=== PATIENT | male | born 1995 | race Asian ===

== ENCOUNTER 2017-04-27 11:41 | Emergency (ER) | payer OTHER ==
[~2017-04-27] VITALS: Ht 177.8 cm; Wt 80.0 kg
[2017-04-27 11:45] VITALS: TEMP 36.9; Ht 177.8 cm; Wt 80.0 kg
[2017-04-27] MEDS ORDERED: IBUPROFEN 600 MG TAB PO STA (12:42)
--- NOTE | 2017-04-27 13:29 | DIAGNOSTIC IMAGING REPORT ---
C-SPINE ROUTINE 4 OR 5 VIEWS CLINICAL HISTORY: 21 years-old Male presenting with L sided neck pain. TECHNIQUE: Frontal, bilateral oblique, lateral, and open-mouth odontoid views of the cervical spine were obtained. COMPARISON: None. FINDINGS: The C7 vertebral body is almost completely visible. Slight reversal of normal cervical lordosis. Vertebral body heights and alignment otherwise preserved. No osseous neural foraminal narrowing. The lateral masses of C1 articulate normally with C2. No widening of the predental interval. No radiographic evidence of acute fracture or subluxation. No prevertebral soft tissue swelling. IMPRESSION: 1. Slight reversal of normal cervical lordosis without associated degenerative change. No osseous neural foraminal narrowing. Electronically signed by: Juan Luis Manley M.D. 04/27/2017 1:28 PM Dictated Date/Time: 04/27/2017 1:25 PM
[2017-04-27] MEDS ORDERED: CYCL10TA6 PO (13:41)
[2017-04-27 13:45] VITALS: BP 118/64; PULSE 63; O2SAT 97
--- NOTE | 2017-04-27 20:44 | EMERGENCY ROOM VISIT NOTE ---
ED Visit Note First contact with patient: 12:12 Chief Complaint: Neck pain. History of Present Illness: Mr. Nye is a 21-year-old [place] male who ambulates into the ED complaining of left-sided neck pain over the middle portion of the trapezius. Patient reports he has been feeling well over the last few days. Today he woke from sleep approximately 2 hours ago and noted pain over the left trapezius muscle. Since that time his pain has been constant. He describes his pain as a deep achy and cramping sensation. He rates his discomfort 4/10. His pain is nonradiating. His pain worsens with extension and left lateral bending of the neck. Additionally he reports it's tender with palpation. He has not identified any alleviating factors related to the pain. He has not taken any medications for pain prior to arrival at the hospital. He denies any associated symptoms including fevers, chills, sweats, skin eruptions, skin color changes, headache, dizziness, lightheadedness, visual changes, hearing changes, sore throat, voice changes, neck stiffness, chest pain, shortness of breath, abdominal pain, nausea, vomiting, recent direct or repetitive trauma, upper extremity weakness/numbness/tingling. Review of Systems: As noted above in history of present illness. All body systems were reviewed and found to be negative as noted above. Past Medical History: Patient denies. Current Medications: Patient denies. Allergies to Medications: Patient denies. 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 Physical Examination: Vital Signs: Date Time Temp Pulse Resp B/P (MAP) Pulse Ox O2 Delivery O2 Flow Rate FiO2 04/27/17 13:45 63 16 118/64 97 04/27/17 11:45 36.9 68 16 123/68 97 Room Air GENERAL: 21-year-old male in mild to moderate distress due to pain, nontoxic- appearing, afebrile and hemodynamically stable. NEUROLOGICAL: Awake, alert and oriented to person, place and time. Answering questions appropriately and following commands. Normal gait. Good hand eye coordination. No focal motor sensory deficits. SKIN: Warm, dry and pink. No soft tissue eruptions or trauma noted. HEENT: Atraumatic and normocephalic. PERRLA. Sclera white and conjunctiva pink. No drainage from naris. Oral cavity moist and pink. Pharynx is nonerythematous or edematous. Speech normal. No lymphadenopathy. Trachea midline. No jugular venous distention. BACK: No tenderness over the bony cervical and thoracic spine. Tenderness and spasm in the left trapezius muscle. Decreased range of motion due to pain. No meningismus. No CVA tenderness. THORAX: Lungs sounds are clear to auscultation and equal bilaterally with symmetrical chest wall. ABDOMEN: Flat, soft and nontender. Positive bowel sounds in all quadrants. No guarding, rigidity or organomegaly. EXTREMITIES: Moves all extremities well on command and with purpose. All distal neurovascular statuses are intact and equal bilaterally. Upper Extremities: No gross bony deformity. No tenderness in the shoulder, elbows, forearms, wrists or hands. 5/5 muscle strength in flexion, extension, abduction and abduction of the shoulders, flexion and extension of the elbows, pronation and supination of the forearms, flexion, extension and radial and ulnar deviation of the wrist, drip strength. 2+ bicipital, tricipital and brachial radialis deep tendon reflexes intact and equal bilaterally. Answering warm and pink and capillary refill is brisk. He is able to distinguish light sensations through all dermatomes. ED Course: Patient is assessed as noted above. Patient's medication list was reviewed. Cervical Spine X-Rays: Were read by myself and the radiologist showing no acute fractures or subluxations. Radiologist does no straining of the normal curve. Patient was given 600 mg of ibuprofen by mouth for pain. Patient was educated about today's findings and instructed on his treatment plan ; he verbalized understanding and agreement with this plan. Clinical Impression: Left trapezius muscle spasm. Disposition: Patient discharged home in stable condition; prior to departure he was reassessed and subjectively reported he was feeling better and rated his discomfort 1/10. Plan: Patient was encouraged to alternate ibuprofen and acetaminophen every 3 hours as needed for pain. Patient was prescribed Flexeril 10 mg every 8 hours for muscle spasm. Patient was encouraged use ice over areas of pain and spasm 5-6 times a day. Patient was urged to avoid weightlifting and other sports until pain-free. Patient was encouraged to follow-up with [facility] for recheck in 3-4 days. Patient was encouraged return the ED for worsening/uncontrolled pain, fevers, arm weakness/numbness/tingling or any new/concerning symptoms.
== END 2017-04-27 13:48 | disposition home or self-care (01) ==
LOC: C.EDB 11:43 → C.EDD 13:48
DX: M62.838 Other muscle spasm (principal)

== ENCOUNTER 2017-09-14 10:15 | Emergency (ER) | payer OTHER ==
[~2017-09-14] VITALS: Ht 177.8 cm; Wt 76.0 kg
[2017-09-14 10:20] VITALS: TEMP 37; Ht 177.8 cm; Wt 76.0 kg
[2017-09-14] MEDS ORDERED: MELA1TAB49 PO (10:44)
--- NOTE | 2017-09-14 11:45 | EMERGENCY ROOM VISIT NOTE ---
History First contact with patient: 11:35 Chief Complaint: CONGESTION Stated Complaint: NOSE CANNOT BREATHE, HEADACHE Nursing Triage Summary: GRANADOS and nasal congestion for 1 wk History of Present Illness The patient is a 21 year old male who presents to the Emergency Room via private vehicle with complaints of "headache and denies all congestion for one week". There is noted to be right-sided nasal drainage, and he states that he has been trying Flonase without relief. He is at this before and was told to use that. He denies any neck pain. He notes the headache in the front of his head. He rates the pain overall is a 2/10. No rashes. Review of Systems A complete 6-point Review of Systems was discussed with the patient, with pertinent positives and negatives listed in the History of Present Illness. All remaining Review of Systems questions can be considered negative unless otherwise specified. Past Medical/Surgical History No pertinent. Family History No pertinent. Social History Smoking Status: Never Smoker Pt. is a [employer] student Current/Historical Medications Scheduled Melatonin (Melatonin), 1 TAB PO UD Physical Exam Vital Signs Date Time Temp Pulse Resp B/P (MAP) Pulse Ox O2 Delivery O2 Flow Rate FiO2 09/14/17 11:55 103 18 117/70 96 09/14/17 10:20 37.0 95 16 134/81 97 Room Air Physical Exam VITAL SIGNS - Vital signs and nursing notes were reviewed. Stable. Afebrile. GENERAL -21-year-old male appearing his stated age who is in no acute distress. Communicates well with provider and answers questions appropriately. SKIN - Without rashes. No petechial rashes. HEAD - NC/AT. EYES -no hyphema. Sclera anicteric. EARS - No deformities of external structures noted on gross examination bilaterally. External auditory canals without discharge or otorrhea. Tympanic membranes pearly howell without retraction or bulging. No fluid or purulent material visualized behind the TM. Handle of malleus, umbo, cone of light, pars tensa/flaccid all easily visualized. NOSE - Midline and without cyanosis. No epistaxis noted, there is erythema noted to the intranasal mucosa. No septal hematoma. MOUTH/OROPHARYNX - Without perioral cyanosis. Buccal mucosa pink and moist and without leukoplakia. Tongue midline with equal elevation of palate bilaterally. No tonsillar hypertrophy, erythema, or exudates noted. Fair dentition noted. NECK - Neck with FROM. No rigidity. LUNGS - Chest wall symmetric without accessory muscle use, intercostals retractions, or central cyanosis. Normal vesicular breath sounds CTA B/L. No wheezes, rales, or rhonchi appreciated. CARDIAC - RRR with S1/S2. No murmur, rubs, or gallops appreciated. Medical Decision & Procedures Medical Decision Patient was seen and evaluated as above. He presents to us today with sinus congestion. He appears to have likely be viral sinusitis/rhinitis with perhaps allergic component. No evidence of bacterial infection. Rapid strep was obtained and found to be negative. Culture pending. He is nontoxic on exam and there is no evidence of meningitis or encephalitis. He is felt stable for outpatient management with conservative measures. He was educated upon management, educated upon worrisome symptoms which to return, had a discharge, and was discharged home in good condition. In evaluation treatment this patient following differential diagnoses were entertained: Meningitis, encephalitis, sinusitis, rhinitis, strep pharyngitis, among others. Impression Primary Impression: Sinus congestion Departure Information Dispostion Home / Self-Care Condition GOOD Referrals [facility] (PCP) Patient Instructions My [facility] Additional Instructions You were seen in the emergency department for your sore throat, nasal congestion and headache. The results of your rapid strep screen were found to be negative. You will be contacted in 48-72 hrs if the results of your culture are found to be positive and any change in antibiotics is necessary. For pain and fever control, you can use the following [id number] medicines - Regular strength (325mg/tab) Tylenol (acetaminophen) 2 tabs every 4-6 hours as needed. Do not exceed 12 tablets in a 24 hour period. Avoid taking more than 3 grams (3000 mg) of Tylenol per day. This includes any other sources of acetaminophen you may take on a regular basis. - Regular strength (200 mg/tab) Advil (ibuprofen) 1-2 tabs every 4-6 hours as needed. Do not exceed a dose of 3200 mg per day. I recommend continuing the nasal spray I also recommend a decongestant such as pseudophed which may be found at the pharmacy counter (ask pharmacist and take as directed for a few days) In addition to your prescribed medications, you can also use the following home remedies: - Warm salt-water gargles 3 times per day can soothe your throat and help to fight infection. - Warm tea with honey can soothe your throat. Return to the emergency department if your symptoms persist or worsen over the next 2-3 days despite treatment course outlined above. Return to the emergency department if you develop the following symptoms of: inability to swallow solids , liquids, or drool; excessive wheezing or inability to catch your breath; or intractable fever or pain. Follow up with your primary care provider in 2-3 days from today's emergency department visit.
[2017-09-14 11:55] VITALS: BP 117/70; PULSE 103; O2SAT 96
== END 2017-09-14 11:55 | disposition home or self-care (01) ==
LOC: C.EDB 10:17 → C.EDD 11:55
DX: J32.9 Chronic sinusitis, unspecified (principal)